=== PATIENT | male | born 1955 | race Caucasian/White ===

== ENCOUNTER 2023-09-09 12:57 | Inpatient (IN) | payer OTHER, SELFPAY ==
--- NOTE | 2023-09-09 14:05 | CM ---
Patient with Hx dementia admitted on 08/29/23 with Dx Septic shock, Influenza A, Aspiration pneumonia, UTI, Acute hypoxic respiratory failure, MALLORY/ATN, Hypernatremia, Acute metabolic septic encephalopathy. IV MS prn, IV Ativan prn.
Message from [facility]; she met with the /family today who agreed to [facility].
Plan [facility].
--- NOTE | 2023-09-09 14:10 | CM ---
Patient from [facility] with Hx dementia admitted on 08/29/23 with Dx Septic shock, Influenza A, Aspiration pneumonia, UTI, Acute hypoxic respiratory failure, MALLORY/ATN, Hypernatremia, Acute metabolic septic encephalopathy. IV MS prn, IV Ativan
prn.
Message from [facility]; she met with the /family today who agreed to [facility].
Plan [facility].
--- NOTE | 2023-09-09 18:10 | PTCARENOTE ---
Pt remains comfortable
--- NOTE | 2023-09-09 20:08 | PTCARENOTE ---
Report given to 2N RN. Pt transported via bed with all his belongings. at bedside.
[2023-09-09 20:11] VITALS: BP 87/52
--- NOTE | 2023-09-09 20:30 | PTCARENOTE ---
Patient received from IMU; Inpatient Hospice; at bedside; patient appears comfortable; emotional support provided; see nursing documentation for further assessment.
[2023-09-09] MEDS: MORPHINE SULFATE 2 MG IV (21:35)
[2023-09-09] MEDS: HALDOL 1 MG IV (21:36)
[2023-09-10] MEDS: HALDOL 1 MG IV (06:34)
[2023-09-10 07:50] VITALS: BP 91/56
--- NOTE | 2023-09-10 07:52 | W.PN.HOSP.TC ---
Today's Communication/Plan
-
see bold
Assessment / Plan
Assessment / Plan
Gen: NAD, appears chronically ill, NCAT
Neck: supple.
CV: RRR, +S1/S2, no m/r/g.
Resp: CTAB anteriorly, no rales, wheezes, or rhonchi.
Psych: calm
Continue inpatient hospice care with Ativan/Haldol/morphine.
Pt's updated at bedside. She was concerned that 'blood pressure had been a problem' and wanted to make sure his 'heart is ok.' I did explain that at this time his heart is regular rate and rhythm and heart sounds are normal but that this (and
the BP) will deteriorate as the dying process progresses.

Documentation from prior to transition to hospice:
Impression:
Septic shock
Influenza A
Aspiration pneumonia, POA
UTI, E. coli pansensitive-POA
Acute hypoxic respiratory failure
Acute kidney injury, acute tubular necrosis
Severe Hypernatremia
Elevated troponin, non myocardial infarction likely related to sepsis.
Acute metabolic septic encephalopathy
Conditions prior to presentation:
Hyperlipidemia
Paroxysmal atrial fibrillation
Dementia, Alzheimer's type (advanced)
Psoriasis
Appendiceal cancer
PLAN:
Septic shock due to influenza A, aspiration pneumonia, and E. coli UTI, all present on admission:
-Also MALLORY and severe hyponatremia due to septic shock and volume depletion/dehydration
-Also acute metabolic encephalopathy due to septic shock
Cont pressor low dose and titrate as able.
Given normal saline bolus and with increased midodrine dose we have been able to keep low-dose Levophed.
Was on Zosyn, started 08/29/23, then transitioned to Unasyn. Can stop abx at this time.
Cont enteral feeds for now and then comfort feeds.
Finished course of Tamiflu.
Follow-up cultures--> influenza A positive, blood cultures no growth, urine culture E. coli, MRSA screen Staph aureus positive.
Off� IVF
Na 173 upon admission-->140 today
Leukocytosis improved
Was on insulin drip, now off
Was on stress dose steroids, now off
Follow-up electrolytes and renal function
Appreciated glaciologist follow up and they signed off 09/04.
Laboratory Supervisor signed off on 09/02
Anticipated Discharge: Within 24 hours
Subjective/Interval History
-
Date of Service: September 10, 2023
Pt resting comfortably.
Objective Data
-
Vital Signs:
Vital Signs
Temp Pulse Resp BP Pulse Ox
98.4 F 80 16 87/52 90
09/09/23 20:11 09/09/23 20:11 09/09/23 20:11 09/09/23 20:11 09/09/23 21:00
I&O
09/09/23 09/10/23 09/11/23
06:59 06:59 06:59
Output Total 2600 / 2600
Balance -2600 / -2600
--- NOTE | 2023-09-10 10:27 | CM ---
Reviewed the chart notes. Patient remains in [facility] status. CM continues to be available to patient/family and is monitoring medical plan for needs at discharge.
Plan [facility].
--- NOTE | 2023-09-10 14:41 | HOSPNOTE ---
Braille Coder visited patient in his room with his spouse, Isa present. Patient was quiet and occasionally opened his eyes. No verbal response. Braille Coder provided support for spouse and prayer. Spouse was tearful. Spouse reported that patient grew up
Protestant but has not been active. Braille Coder will visit 2x per week.
--- NOTE | 2023-09-10 14:43 | HOSPNOTE ---
Patient is resting comfortable, spouse had many questions stating she feels she made a mistake about hospice. I discussed hospice and the philosophy again and explained the patient's current status. The patient is dying and the patient will wax and
wane. Spouse asked about patient eating and drinking and at this time the patient is too lethargic and it is unsafe, however we can do mouth care. The patient does get very agitated with turning and positioning and encouraged the nurse to medicate
prior to care. The patient will be seen daily by hospice nurse. Much education and emotional support needed.
[2023-09-10 19:19] VITALS: BP 90/46
[2023-09-11] MEDS: MORPHINE SULFATE 2 MG IV ×3 (01:08→21:49)
[2023-09-11 07:35] VITALS: BP 117/53
[2023-09-11] MEDS: ATIVAN 0.5 MG IV (09:42)
--- NOTE | 2023-09-11 10:55 | PTCARENOTE ---
pt given prn pain medication and ativan at bedside for the patients restlessness and nonverbal score of 6 for end of life pain. verbal was taken for indwelling maza catheter this morning. interventions added to chart. pt favors the left side and
seems to be having some neck contraction to that side. this nurse and the hospice nurse repositioned the patient and placed a rolled towel as well as pillows under the left side to help prevent any further discomfort. b/l heel foams and elbow foams
are intact and patient is being turned q2hr. states that she does not like ativan and would rather him receive haldol if anything is needed for agitation or anxiety in the future.
--- NOTE | 2023-09-11 11:11 | W.PN.HOSP.TC ---
Today's Communication/Plan
-
see bold
Assessment / Plan
Assessment / Plan
Gen: remains NAD, appears chronically ill, NCAT
Neck: supple.
CV: remains RRR, +S1/S2, no m/r/g.
Resp: remains CTAB anteriorly, no rales, wheezes, or rhonchi.
Psych: calm
Continue inpatient hospice care with Ativan/Haldol/morphine.
Pt's updated at bedside.

Documentation from prior to transition to hospice:
Impression:
Septic shock
Influenza A
Aspiration pneumonia, POA
UTI, E. coli pansensitive-POA
Acute hypoxic respiratory failure
Acute kidney injury, acute tubular necrosis
Severe Hypernatremia
Elevated troponin, non myocardial infarction likely related to sepsis.
Acute metabolic septic encephalopathy
Conditions prior to presentation:
Hyperlipidemia
Paroxysmal atrial fibrillation
Dementia, Alzheimer's type (advanced)
Psoriasis
Appendiceal cancer
PLAN:
Septic shock due to influenza A, aspiration pneumonia, and E. coli UTI, all present on admission:
-Also MALLORY and severe hyponatremia due to septic shock and volume depletion/dehydration
-Also acute metabolic encephalopathy due to septic shock
Cont pressor low dose and titrate as able.
Given normal saline bolus and with increased midodrine dose we have been able to keep low-dose Levophed.
Was on Zosyn, started 08/29/23, then transitioned to Unasyn. Can stop abx at this time.
Cont enteral feeds for now and then comfort feeds.
Finished course of Tamiflu.
Follow-up cultures--> influenza A positive, blood cultures no growth, urine culture E. coli, MRSA screen Staph aureus positive.
Off� IVF
Na 173 upon admission-->140 today
Leukocytosis improved
Was on insulin drip, now off
Was on stress dose steroids, now off
Follow-up electrolytes and renal function
Appreciated track layer head follow up and they signed off 09/04.
Surgical Asst signed off on 09/02
Anticipated Discharge: Within 24 hours
Subjective/Interval History
-
Date of Service: September 11, 2023
Pt currently unresponsive.
Objective Data
-
Vital Signs:
Vital Signs
Temp Pulse Resp BP Pulse Ox
97.8 F 66 16 117/53 94
09/11/23 07:35 09/11/23 07:35 09/11/23 07:35 09/11/23 07:35 09/11/23 10:44
I&O
09/10/23 09/11/23 09/12/23
06:59 06:59 06:59
Intake Total 0 / 0
Output Total 2600 / 2600 1600 / 1600
Balance -2600 / -2600 -1600 / -1600
--- NOTE | 2023-09-11 12:17 | HOSPNOTE ---
Patient observed placing his legs over the side rail. He was restless and showed a flacc score of 5/6, moderate pain. Patient medicated with morphine 2 mg and ativan 0.5 mg IVP. Spouse became upset and stated that she does not like patient to be
given Ativan as it is too sedating. She requests that if patient needs anything for restlessness or agitation that he be given prn Haldol instead. Note placed in chart. Patient turned and repositioned. He was able to fall asleep at the end of the
visit. His neck is contracted to the left side, he has noticeable discomfort when repositioning. Mouth care provided, he did suck on the sponge and swallowed some water. Reviewed comfort feeding available when pt is more awake and alert to safely
tolerate. Spouse was going to go home and shower. Informal report with AP Robledo. Patient continues to be GIP appropriate level of care for the management of pain and anxiety with IVP PRN morphine, Ativan and Haldol that could not be managed in the
outpatient setting. Patient will continue to be seen daily. Emotional support provided.
--- NOTE | 2023-09-11 16:06 | PTCARENOTE ---
nurse talked to MD and hospice nurse. pt asking for comfort liquids. hospice nurse okay with request as long as it is only when pt is more oriented, MD made aware, awaiting order placement.
[2023-09-11 19:57] VITALS: BP 104/55
[2023-09-12 07:56] VITALS: BP 110/56
--- NOTE | 2023-09-12 09:34 | W.PN.HOSP.TC ---
Today's Communication/Plan
-
see A/P
Assessment / Plan
Assessment / Plan
Impression:
Septic shock
Influenza A
Aspiration pneumonia, POA
UTI, E. coli pansensitive-POA
Acute hypoxic respiratory failure
Acute kidney injury, acute tubular necrosis
Severe Hypernatremia
Elevated troponin, non myocardial infarction likely related to sepsis.
Acute metabolic septic encephalopathy
Conditions prior to presentation:
Hyperlipidemia
Paroxysmal atrial fibrillation
Dementia, Alzheimer's type (advanced)
Psoriasis
Appendiceal cancer
A/P:
Septic shock due to influenza A, aspiration pneumonia, and E. coli UTI, all present on admission
Also MALLORY and severe hyponatremia due to septic shock and volume depletion/dehydration
Also acute metabolic encephalopathy due to septic shock
Off pressor/IVF support/midodrine with current comfort measures/hospice care
Zosyn started 08/29/23 then transitioned to Unasyn. Off abx at this time.
Finished course of Tamiflu.
Na 173 upon admission -> 140
Was on insulin drip, now off
Was on stress dose steroids, now off
Appreciated patient placement coordinator follow up and they signed off 09/04.
Tv Technician signed off on 09/02
Continue inpatient hospice care with IV morphine and Haldol.
would like to hold Ativan- held.
d/w , she would like to start feeding. Given eating is considered a pleasurable activity, will liberalize diet and NOT withhold this pleasurable activity.
Informed about his high risk of aspiration and as a result, she is aware and accepts risk.
d/w RN
Anticipated Discharge: Within 24 hours
Subjective/Interval History
-
Date of Service: September 12, 2023
Objective Data
-
Vital Signs:
Vital Signs
Temp Pulse Resp BP Pulse Ox
36.6 C 63 16 110/56 96
09/12/23 07:56 09/12/23 07:56 09/12/23 07:56 09/12/23 07:56 09/12/23 07:56
I&O
09/11/23 09/12/23 09/13/23
06:59 06:59 06:59
Intake Total 0 / 0
Output Total 1600 / 1600 700 / 700
Balance -1600 / -1600 -700 / -700
Review of Systems
-
Unable to obtain full review of systems at this time due to: Acuity and Other (confusion/delirious)
Physical Exam
-
General: Comfortable and Appears Chronically Ill
Respiratory: Non Labored Respirations; Negative Accessory Resp Muscle Use
Neuro: Awake; Negative AO x 3
Psych: Calm and Confused
--- NOTE | 2023-09-12 10:34 | CM ---
Reviewed the chart notes. Patient continues on [facility]. CM continues to be available to patient/family and is monitoring medical plan for needs at discharge.
Plan: [facility].
[2023-09-12] MEDS: MORPHINE SULFATE 2 MG IV ×3 (12:03→21:30)
--- NOTE | 2023-09-12 12:26 | HOSPNOTE ---
Spoke at length with spouse and son and explained why we give medications and the use of Haldol and the use of Ativan. The family feels the patient becomes too lethargic with Ativan so it was discontinued. I also explained we only medicate when
needed. Emotional support was given. If the patient stabilizes I explained placement would be needed and room and board is not covered on hospice care. The SNF choice would be [facility] and the spouse had already filled out documents. We will
continue to assess daily. The spouse also wanted thick liquids ordered and attending placed order for comfort. I instructed spouse and son not to give any liquids if the patient is too lethargic return understanding. Spoke with floor RN and gave
report.
--- NOTE | 2023-09-12 13:18 | HOSPNOTE ---
Puppy Trainer visited patient with spouse and son present. Spouse denied spiritual concerns or distress. Puppy Trainer provided comfort doing active listening and dialogue. Puppy Trainer will visit 2x/week. Patient was sleeping comfortably.
[2023-09-12 19:38] VITALS: BP 109/68
[2023-09-12] MEDS: HALDOL 1 MG IV (20:18)
[2023-09-13] MEDS: HALDOL 1 MG IV (04:43)
[2023-09-13] MEDS: MORPHINE SULFATE 2 MG IV (04:43)
[2023-09-13 07:20] VITALS: BP 102/51
--- NOTE | 2023-09-13 10:28 | W.PN.HOSP.TC ---
Today's Communication/Plan
-
see A/ P
Assessment / Plan
Assessment / Plan
Impression:
Septic shock
Influenza A
Aspiration pneumonia, POA
UTI, E. coli pansensitive-POA
Acute hypoxic respiratory failure
Acute kidney injury, acute tubular necrosis
Severe Hypernatremia
Elevated troponin, non myocardial infarction likely related to sepsis.
Acute metabolic septic encephalopathy
Conditions prior to presentation:
Hyperlipidemia
Paroxysmal atrial fibrillation
Dementia, Alzheimer's type (advanced)
Psoriasis
Appendiceal cancer
A/P:
Septic shock due to influenza A, aspiration pneumonia, and E. coli UTI, all present on admission
Also MALLORY and severe hyponatremia due to septic shock and volume depletion/dehydration
Also acute metabolic encephalopathy due to septic shock
Off pressor/IVF support/midodrine with current comfort measures/hospice care
Zosyn started 08/29/23 then transitioned to Unasyn. Off abx at this time.
Finished course of Tamiflu.
Na 173 upon admission -> 140
Was on insulin drip, now off
Was on stress dose steroids, now off
Appreciated orthopedic rn follow up and they signed off 09/04.
Safe Deposit Clerk signed off on 09/02
Continue inpatient hospice care with IV morphine and Haldol.
would like to hold Ativan- held.
d/w , she would like to start feeding. Given eating is considered a pleasurable activity, will liberalize diet and NOT withhold this pleasurable activity.
Informed about his high risk of aspiration and as a result, she is aware and accepts risk.
updated on the phone
Anticipated Discharge: Within 24 hours
Subjective/Interval History
-
Date of Service: September 13, 2023
Objective Data
-
Vital Signs:
Vital Signs
Temp Pulse Resp BP Pulse Ox
36.1 C 56 16 102/51 93
09/13/23 07:20 09/13/23 07:20 09/13/23 07:20 09/13/23 07:20 09/13/23 07:20
I&O
09/12/23 09/13/23 09/14/23
06:59 06:59 06:59
Output Total 700 / 700 850 / 850
Balance -700 / -700 -850 / -850
Review of Systems
-
Unable to obtain full review of systems at this time due to: Acuity
Physical Exam
-
General: Comfortable and Appears Chronically Ill
Respiratory: Non Labored Respirations; Negative Accessory Resp Muscle Use
Neuro: Negative AO x 3
Psych: Calm and Confused
--- NOTE | 2023-09-13 14:05 | HOSPNOTE ---
Spoke to spouse again about eating and drinking. I educated that patient is not awake enough to eat or drink, however if there are periods where he is awake then the spouse could feed pudding and thickened liquids, spouse stated understanding. The
patient does require medications prior to any care for pain and agitation. Report given to floor RN. Patient will be see daily by hospice nurse.
--- NOTE | 2023-09-13 15:15 | CM ---
Reviewed chart
Patient continues on [facility].
CM continues to be available to patient/family and is monitoring medical plan for needs at discharge.
Plan: [facility].
--- NOTE | 2023-09-13 15:53 | HOSPNOTE ---
bench worker apprentice visited with patient to provide supportive services as well as to complete initial KNITTER MECHANIC assessment. Patient is a 68 year old who was recently admitted onto hospice services with primary diagnosis Alzheimer's Disease. Patient is
currently GIP level of care. Spouse/SHERRYRadha Moss was present at bedside. Patient was lethargic during visit. Documentation from hospice nurse Day states that patient requires medication prior to any care for pain and agitation. Patient and spouse
have been for 35 years and has a son Frank. Spouse stated that patient is not a and is [employer] but is not active. aids social worker will visit at a frequency of twice a week while patient is GIP level of care. Spouse is having a hard
time accepting patient's decline and voiced feeling angry and questioning purpose of hospice. aids social worker provided emotional support throughout visit and answered questions asked by spouse. Spouse stated that there are no end of life arrangements
made at this time and expressed that they have never discussed his wishes. aids social worker updated hospice SN Day about spouse having multiple questions about medications. aids social worker was informed that she went over the medications and hospice
philosophy multiple times with spouse and that hospice SN [facility] is planned to visit patient tomorrow. aids social worker will inform spouse of this.
[2023-09-13 23:33] VITALS: BP 108/53
[2023-09-14] MEDS: MORPHINE SULFATE 2 MG IV ×2 (02:34→20:28)
[2023-09-14 07:55] VITALS: BP 100/52
--- NOTE | 2023-09-14 09:29 | W.PN.HOSP.TC ---
Today's Communication/Plan
-
cont comfort measures
Assessment / Plan
Assessment / Plan
Impression:
Septic shock
Influenza A
Aspiration pneumonia, POA
UTI, E. coli pansensitive-POA
Acute hypoxic respiratory failure
Acute kidney injury, acute tubular necrosis
Severe Hypernatremia
Elevated troponin, non myocardial infarction likely related to sepsis.
Acute metabolic septic encephalopathy
Conditions prior to presentation:
Hyperlipidemia
Paroxysmal atrial fibrillation
Dementia, Alzheimer's type (advanced)
Psoriasis
Appendiceal cancer
A/P:
Septic shock due to influenza A, aspiration pneumonia, and E. coli UTI, all present on admission
Also MALLORY and severe hyponatremia due to septic shock and volume depletion/dehydration
Also acute metabolic encephalopathy due to septic shock
Off pressor/IVF support/midodrine with current comfort measures/hospice care
Zosyn started 08/29/23 then transitioned to Unasyn. Off abx at this time.
Finished course of Tamiflu.
Na 173 upon admission -> 140
Was on insulin drip, now off
Was on stress dose steroids, now off
Appreciated cloth trimmer hand follow up and they signed off 09/04.
Voucher Examiner signed off on 09/02
Continue inpatient hospice care with IV morphine and Haldol.
would like to hold Ativan- held.
would like to start feeding. Given eating is considered a pleasurable activity, will liberalize diet and NOT withhold this pleasurable activity.
Informed about his high risk of aspiration and as a result, she is aware and accepts risk.
Anticipated Discharge: Within 24 hours
Subjective/Interval History
-
Date of Service: September 14, 2023
Objective Data
-
Vital Signs:
Vital Signs
Temp Pulse Resp BP Pulse Ox
36.6 C 55 14 100/52 97
01/27/24 07:55 09/14/23 07:55 09/14/23 07:55 09/14/23 07:55 09/14/23 07:55
I&O
09/13/23 09/14/23 09/15/23
06:59 06:59 06:59
Output Total 850 / 850 400 / 400
Balance -850 / -850 -400 / -400
Review of Systems
-
Unable to obtain full review of systems at this time due to: Acuity
Physical Exam
-
General: Comfortable and Appears Chronically Ill
Respiratory: Non Labored Respirations; Negative Accessory Resp Muscle Use
Neuro: Negative AO x 3
Psych: Calm and Confused
--- NOTE | 2023-09-14 10:57 | HOSPNOTE ---
Visited patient with spouse at the bedside. Patient is lethargic, opened his eyes during the assessment . Last dose of morphine given around 8 hrs prior to assessment. No signs of pain, anxiety or dyspnea observed during the visit. Mouth care
provided. Patient did not have any oral intake. Spouse is emotional and tearful emotional support provided. Limited life expectancy, s/s of dying and comfort care discussed. home arrangements encouraged. Discussed possible nursing facility
placement if patient no longer GIP appropriate. At this time patient remains GIP appropriate for symptoms management. Report with facility RN Radha, symptoms managed.
--- NOTE | 2023-09-14 16:24 | VATNOTE ---
Pt's PICC line assessed at this time. Dressing and biopatch are clean, dry, and intact. Dressing change deferred at this time for patient comfort.
[2023-09-14 19:52] VITALS: BP 117/65
[2023-09-15 07:40] VITALS: BP 89/48
--- NOTE | 2023-09-15 08:43 | VATNOTE ---
Pt's PICC line assessed at this time. Dressing and biopatch are clean, dry, and intact. Dressing change deferred at this time for patient comfort.
--- NOTE | 2023-09-15 11:44 | HOSPNOTE ---
Assessed patient in the bed, minimally responsive. opens eyes and mumbles, restless. flacc moderate. 1 prn dose of morphine in the last 24 hours. at bedside. she reported PATIENT was restless all night pulling at blankets and picking at things,
but felt he was not having pain. Rigid and tense with care or repositioning. lengthy discussion on nonverbal cues of pain. apprehensive to give morphine as she does not want him 'snowed.' Encouraged to medicate before care to make it more
comfortable for him. much emotional support and discussion on end of life changes. agreeable to give Morphine but onlyhalf dose. TT Dr. Cabral and requested Morphine 1mg PRN. Patient remains GIP appropriate. Discharge planning to continue.
--- NOTE | 2023-09-15 12:11 | W.PN.HOSP.TC ---
Today's Communication/Plan
-
see A/P
Assessment / Plan
Assessment / Plan
Impression:
Septic shock
Influenza A
Aspiration pneumonia, POA
UTI, E. coli pansensitive-POA
Acute hypoxic respiratory failure
Acute kidney injury, acute tubular necrosis
Severe Hypernatremia
Elevated troponin, non myocardial infarction likely related to sepsis.
Acute metabolic septic encephalopathy
Conditions prior to presentation:
Hyperlipidemia
Paroxysmal atrial fibrillation
Dementia, Alzheimer's type (advanced)
Psoriasis
Appendiceal cancer
A/P:
Septic shock due to influenza A, aspiration pneumonia, and E. coli UTI, all present on admission
Also MALLORY and severe hyponatremia due to septic shock and volume depletion/dehydration
Also acute metabolic encephalopathy due to septic shock
Off pressor/IVF support/midodrine with current comfort measures/hospice care
Zosyn started 08/29/23 then transitioned to Unasyn. Off abx at this time.
Finished course of Tamiflu.
Na 173 upon admission -> 140
Was on insulin drip, now off
Was on stress dose steroids, now off
Appreciated associate sales manager follow up and they signed off 09/04.
Dimpling Machine Operator signed off on 09/02
Continue inpatient hospice care with IV morphine and Haldol.
would like to hold Ativan- held.
would like to start feeding. Given eating is considered a pleasurable activity, will liberalize diet and NOT withhold this pleasurable activity.
Informed about his high risk of aspiration and as a result, she is aware and accepts risk.
DW RN
DW at bedside
Anticipated Discharge: Within 24 hours
Subjective/Interval History
-
Date of Service: September 15, 2023
Objective Data
-
Vital Signs:
Vital Signs
Temp Pulse Resp BP Pulse Ox
36.5 C 59 12 89/48 97
09/15/23 07:40 09/15/23 07:40 09/15/23 07:40 09/15/23 07:40 09/15/23 07:40
I&O
09/14/23 09/15/23 09/16/23
06:59 06:59 06:59
Intake Total 540 / 540
Output Total 400 / 400 650 / 650
Balance -400 / -400 -110 / -110
Review of Systems
-
Unable to obtain full review of systems at this time due to: Acuity
Physical Exam
-
General: Comfortable and Appears Chronically Ill
Respiratory: Non Labored Respirations; Negative Accessory Resp Muscle Use
Neuro: Awake
Psych: Calm and Confused
[2023-09-15] MEDS: MORPHINE SULFATE 1 MG IV (14:02)
--- NOTE | 2023-09-15 15:26 | CHAP ---
Mr. Love was mostly sleeping, and I spoke with his , Isa, at bedside. She said they have good support from family and friends, and she also shared about their life together, their matias journeys, and the present situation. Refugio woke up at
one point and asked me how I was doing. I responded, and asked him the same question. Isa noted that Refugio has been able to communicate a little during the past week, which he hasn't done for some years. We prayed together, and I made the sign of
the Cross on Refugio's forehead, with the blessed oil Isa had with her.
[2023-09-15] MEDS: MORPHINE SULFATE 2 MG IV (18:13)
[2023-09-15] MEDS: FLUSH (NSS) 2 FLUSH IV (18:14)
[2023-09-15 19:52] VITALS: BP 100/49
[2023-09-16] MEDS: MORPHINE SULFATE 2 MG IV ×4 (00:39→23:41)
--- NOTE | 2023-09-16 00:50 | PTCARENOTE ---
Patient's requested morpine 2mg IV to be given (see MAR); she stated that the 1mg was not effective.
[2023-09-16 07:25] VITALS: BP 112/58
--- NOTE | 2023-09-16 08:04 | W.PN.HOSP.TC ---
Today's Communication/Plan
-
Continue comfort care measures.
Assessment / Plan
Assessment / Plan
Physical exam:
General: Acutely ill
HEENT: Normocephalic, Atraumatic and Moist Mucous Membranes
Respiratory: Decreased breath sounds bilateral; No crackles.� Negative Wheezes
Cardiac: Regular Rhythm and S1/S2
GI: Soft, Nontender and Nondistended
Musculoskeletal: No Clubbing, No Cyanosis and No Edema
Neuro: Alert and Disoriented, does move spontaneously and currently on restraints.
Psych: Lack of judgment and insight at the moment.
A/P:
Impression:
Septic shock
Influenza A
Aspiration pneumonia, POA
UTI, E. coli pansensitive-POA
Acute hypoxic respiratory failure
Acute kidney injury, acute tubular necrosis
Severe Hypernatremia
Elevated troponin, non myocardial infarction likely related to sepsis.
Acute metabolic septic encephalopathy
Conditions prior to presentation:
Hyperlipidemia
Paroxysmal atrial fibrillation
Dementia, Alzheimer's type (advanced)
Psoriasis
Appendiceal cancer
A/P:
Septic shock due to influenza A, aspiration pneumonia, and E. coli UTI, all present on admission
Also MALLORY and severe hyponatremia due to septic shock and volume depletion/dehydration
Also acute metabolic encephalopathy due to septic shock
Off pressor/IVF support/midodrine with current comfort measures/hospice care
Zosyn started 08/29/23 then transitioned to Unasyn. Off abx at this time.
Finished course of Tamiflu.
Na 173 upon admission -> 140
Was on insulin drip, now off
Was on stress dose steroids, now off
Appreciated email specialist follow up and they signed off 09/04.
Dam Tender Assistant signed off on 09/02
Continue inpatient hospice care with IV morphine and Haldol.
would like to hold Ativan- held by Dr. Cabral.
would like to start feeding. Given eating is considered a pleasurable activity, will liberalize diet and NOT withhold this pleasurable activity.
Dr. Cabral informed about his high risk of aspiration and as a result, she is aware and accepts risk.
NIKOLAY RN today on 09/16.
Anticipated Discharge: > 48 hours
Subjective/Interval History
-
Date of Service: September 16, 2023
Patient seen and examined. No new events.
Objective Data
-
Vital Signs:
Vital Signs
Temp Pulse Resp BP Pulse Ox
97.4 F 53 16 100/49 96
09/15/23 19:52 09/15/23 19:52 09/15/23 19:52 09/15/23 19:52 09/16/23 00:00
I&O
09/15/23 09/16/23 09/17/23
06:59 06:59 06:59
Intake Total 540 / 540
Output Total 650 / 650 475 / 475
Balance -110 / -110 -475 / -475
--- NOTE | 2023-09-16 11:43 | CM ---
Reviewed the chart notes. Patient remains on [facility].
--- NOTE | 2023-09-16 11:48 | HOSPNOTE ---
Wholesale Manager Visited Patient in Room at [facility]. Patient was sleeping, having recently recieved medication for comfort. Wholesale Manager spoke with patient's spouse and offered support and reminded her of the resources available to her and the
patient while on hospice. Wholesale Manager will visit daily.
--- NOTE | 2023-09-16 14:19 | HOSPNOTE ---
Spoke with spouse and discussed how the patient looked uncomfortable and she was in agreement to give morphine. Apparently over the weekend the spouse was asking the staff do a half dose however stated it was not working well. Much education given
and support. Patient will be seen daily by hospice nurse.
[2023-09-16 23:51] VITALS: BP 118/58
[2023-09-17] MEDS: MORPHINE SULFATE 2 MG IV ×5 (03:20→19:59)
[2023-09-17 07:25] VITALS: BP 134/58
--- NOTE | 2023-09-17 08:25 | W.PN.HOSP.TC ---
Today's Communication/Plan
-
Continue comfort measures
Assessment / Plan
Assessment / Plan
Physical exam:
General: Acutely ill
HEENT: Normocephalic, Atraumatic and Moist Mucous Membranes
Respiratory: Decreased breath sounds bilateral; No crackles.� Negative Wheezes
Cardiac: Regular Rhythm and S1/S2
GI: Soft, Nontender and Nondistended
Musculoskeletal: No Clubbing, No Cyanosis and No Edema
Neuro: Alert and Disoriented, does move spontaneously and currently on restraints.
Psych: Lack of judgment and insight at the moment.
A/P:
Impression:
Septic shock
Influenza A
Aspiration pneumonia, POA
UTI, E. coli pansensitive-POA
Acute hypoxic respiratory failure
Acute kidney injury, acute tubular necrosis
Severe Hypernatremia
Elevated troponin, non myocardial infarction likely related to sepsis.
Acute metabolic septic encephalopathy
Conditions prior to presentation:
Hyperlipidemia
Paroxysmal atrial fibrillation
Dementia, Alzheimer's type (advanced)
Psoriasis
Appendiceal cancer
A/P:
Septic shock due to influenza A, aspiration pneumonia, and E. coli UTI, all present on admission
Also MALLORY and severe hyponatremia due to septic shock and volume depletion/dehydration
Also acute metabolic encephalopathy due to septic shock
Off pressor/IVF support/midodrine with current comfort measures/hospice care
Zosyn started 08/29/23 then transitioned to Unasyn. Off abx at this time.
Finished course of Tamiflu.
Na 173 upon admission -> 140
Was on insulin drip, now off
Was on stress dose steroids, now off
Appreciated registered vascular technologist (rvt) follow up and they signed off 09/04.
Refrigeration Systems Installer signed off on 09/02
Continue inpatient hospice care with IV morphine and Haldol.
would like to hold Ativan- held by Dr. Cabral.
would like to start feeding. Given eating is considered a pleasurable activity, will liberalize diet and NOT withhold this pleasurable activity.
Dr. Cabral informed about his high risk of aspiration and as a result, she is aware and accepts risk.
NIKOLAY RN.
Anticipated Discharge: 24 - 48 hours
Subjective/Interval History
-
Date of Service: September 17, 2023
Patient seen and examined.
Objective Data
-
Vital Signs:
Vital Signs
Temp Pulse Resp BP Pulse Ox
97.6 F 74 18 134/58 94
09/17/23 07:25 09/17/23 07:25 09/17/23 07:25 09/17/23 07:25 09/17/23 07:25
I&O
09/16/23 09/17/23 09/18/23
06:59 06:59 06:59
Output Total 475 / 475 450 / 450
Balance -475 / -475 -450 / -450
--- NOTE | 2023-09-17 13:01 | HOSPNOTE ---
Patient is lethargic and was just medicated with morphine IV for pain. Patient is agitated however the spouse is refusing to administer Haldol at this time and states the morphine works. The spouse stated she picked a home [place] [facility]. Patient will be seen daily by chain sales consultant.
--- NOTE | 2023-09-17 14:56 | CM ---
Reviewed the chart notes. Patient remains on [facility]. CM continues to be available to patient/family and is monitoring medical plan for needs at discharge.
Plan: [facility].
[2023-09-17 23:49] VITALS: BP 151/73
[2023-09-18] MEDS: MORPHINE SULFATE 2 MG IV ×10 (01:10→23:46)
--- NOTE | 2023-09-18 07:32 | W.PN.HOSP.TC ---
Today's Communication/Plan
-
Comfort measures
Assessment / Plan
Assessment / Plan
Physical exam:
General: Acutely ill
HEENT: Normocephalic, Atraumatic and Moist Mucous Membranes
Respiratory: Decreased breath sounds bilateral; No crackles.� Negative Wheezes
Cardiac: Regular Rhythm and S1/S2
GI: Soft, Nontender and Nondistended
Musculoskeletal: No Clubbing, No Cyanosis and No Edema
Neuro: Alert and Disoriented, does move spontaneously and currently on restraints.
Psych: Lack of judgment and insight at the moment.
A/P:
Impression:
Septic shock
Influenza A
Aspiration pneumonia, POA
UTI, E. coli pansensitive-POA
Acute hypoxic respiratory failure
Acute kidney injury, acute tubular necrosis
Severe Hypernatremia
Elevated troponin, non myocardial infarction likely related to sepsis.
Acute metabolic septic encephalopathy
Conditions prior to presentation:
Hyperlipidemia
Paroxysmal atrial fibrillation
Dementia, Alzheimer's type (advanced)
Psoriasis
Appendiceal cancer
A/P:
Septic shock due to influenza A, aspiration pneumonia, and E. coli UTI, all present on admission
Also MALLORY and severe hyponatremia due to septic shock and volume depletion/dehydration
Also acute metabolic encephalopathy due to septic shock
Off pressor/IVF support/midodrine with current comfort measures/hospice care
Zosyn started 08/29/23 then transitioned to Unasyn. Off abx at this time.
Finished course of Tamiflu.
Na 173 upon admission -> 140
Was on insulin drip, now off
Was on stress dose steroids, now off
Appreciated pens and pencils repairer follow up and they signed off 09/04.
Terminal Make Up Operator signed off on 09/02
Continue inpatient hospice care with IV morphine and Haldol.
would like to hold Ativan- held by Dr. Cabral.
Currently on morphine 2 mg every 1 hours as needed (no need for drip at the moment but will reeval), Haldol 1 mg IV every 4 hours as needed, Zofran 4 mg every 6 hours as needed, Robinul as needed, Dulcolax as needed, rectal acetaminophen as needed.
would like to start feeding. Given eating is considered a pleasurable activity, will liberalize diet and NOT withhold this pleasurable activity.
Dr. Cabral informed about his high risk of aspiration and as a result, she is aware and accepts risk.
Discussed with RN.
Discussed with at bedside
Anticipated Discharge: 24 - 48 hours
Subjective/Interval History
-
Date of Service: September 18, 2023
patient seen and examined.
Objective Data
-
Vital Signs:
Vital Signs
Temp Pulse Resp BP Pulse Ox
97.4 F 93 14 151/73 94
09/17/23 23:49 09/17/23 23:49 09/17/23 23:49 09/17/23 23:49 09/17/23 23:49
I&O
09/17/23 09/18/23 09/19/23
06:59 06:59 06:59
Intake Total 0 / 0
Output Total 450 / 450 450 / 450
Balance -450 / -450 -450 / -450
[2023-09-18] MEDS: ROBINUL 0.200000000000000011 MG IV ×2 (08:18→20:50)
[2023-09-18 08:40] VITALS: BP 105/65
[2023-09-18] MEDS: HALDOL 1 MG IV ×2 (11:37→23:46)
--- NOTE | 2023-09-18 11:47 | HOSPNOTE ---
copy worker visited with patient to provide supportive services, including emotional support. Spouse sIa was present at bedside. Patient continues to be lethargic. Hospital nurse came in after visit to administer medication. Spouse stated
that she feels that the morphine is helping with his pain. Patient did not appear to be restless during visit. Spouse stated that their son is also at the hospital to visit and had stepped out. Emotional support provided and social service liaison encouraged
spouse to reach out for support needed. Patient remains GIP appropriate to manage symptoms including pain and agitation. Discharge planning continues.
--- NOTE | 2023-09-18 12:08 | HOSPNOTE ---
No family was present for my visit early this am. The patient is lethargic did not open eyes at all during visit. decreased urine output noted. Patient's coloring has changed since yesterday. Encouraged to continue medicating for pain management.
Patient will be seen daily.
[2023-09-18 23:26] VITALS: BP 106/71
[2023-09-19] MEDS: MORPHINE SULFATE 2 MG IV ×7 (00:54→23:16)
[2023-09-19] MEDS: ROBINUL 0.200000000000000011 MG IV (03:06)
[2023-09-19 07:00] VITALS: BP 94/49
[2023-09-19] MEDS: HALDOL 1 MG IV ×2 (08:21→15:58)
--- NOTE | 2023-09-19 08:30 | W.PN.HOSP.TC ---
Today's Communication/Plan
-
Continue comfort measures
Assessment / Plan
Assessment / Plan
Physical exam:
General: Acutely ill
HEENT: Normocephalic, Atraumatic and Moist Mucous Membranes
Respiratory: Decreased breath sounds bilateral; No crackles.� Negative Wheezes
Cardiac: Regular Rhythm and S1/S2
GI: Soft, Nontender and Nondistended
Musculoskeletal: No Clubbing, No Cyanosis and No Edema
Neuro: Alert and Disoriented, does move spontaneously and currently on restraints.
Psych: Lack of judgment and insight at the moment.
A/P:
Impression:
Septic shock
Influenza A
Aspiration pneumonia, POA
UTI, E. coli pansensitive-POA
Acute hypoxic respiratory failure
Acute kidney injury, acute tubular necrosis
Severe Hypernatremia
Elevated troponin, non myocardial infarction likely related to sepsis.
Acute metabolic septic encephalopathy
Conditions prior to presentation:
Hyperlipidemia
Paroxysmal atrial fibrillation
Dementia, Alzheimer's type (advanced)
Psoriasis
Appendiceal cancer
A/P:
Septic shock due to influenza A, aspiration pneumonia, and E. coli UTI, all present on admission
Also MALLORY and severe hyponatremia due to septic shock and volume depletion/dehydration
Also acute metabolic encephalopathy due to septic shock
Off pressor/IVF support/midodrine with current comfort measures/hospice care
Zosyn started 08/29/23 then transitioned to Unasyn. Off abx at this time.
Finished course of Tamiflu.
Na 173 upon admission -> 140
Was on insulin drip, now off
Was on stress dose steroids, now off
Appreciated commercial illustrator follow up and they signed off 09/04.
Program Instructor signed off on 09/02
Continue inpatient hospice care with IV morphine and Haldol.
would like to hold Ativan- held by Dr. Cabral.
Currently on morphine 2 mg every 1 hours as needed (no need for drip at the moment but will reeval), Haldol 1 mg IV every 4 hours as needed, Zofran 4 mg every 6 hours as needed, Robinul as needed, Dulcolax as needed, rectal acetaminophen as needed.
would like to start feeding. Given eating is considered a pleasurable activity, will liberalize diet and NOT withhold this pleasurable activity.
Dr. Cabral informed about his high risk of aspiration and as a result, she is aware and accepts risk.
Discussed with RN.
Discussed with at bedside
Anticipated Discharge: 24 - 48 hours
Subjective/Interval History
-
Date of Service: September 19, 2023
Patient seen and examined
Objective Data
-
Vital Signs:
Vital Signs
Temp Pulse Resp BP Pulse Ox
99.5 F 108 20 94/49 85
09/19/23 07:00 09/19/23 07:00 09/19/23 07:00 09/19/23 07:00 09/19/23 07:00
I&O
09/18/23 09/19/23 09/20/23
06:59 06:59 06:59
Intake Total 0 / 0
Output Total 450 / 450 300 / 300
Balance -450 / -450 -300 / -300
[2023-09-19] MEDS: TYLENOL/FEVERALL 650 MG RECTAL ×2 (08:38→16:06)
--- NOTE | 2023-09-19 11:30 | CM ---
Reviewed the chart notes. Patient continue on [facility].
--- NOTE | 2023-09-19 11:38 | HOSPNOTE ---
Patient is active and completely unresponsive. Patient has been given 2 PRN doses for resp. Patient now appears comfortable. Will continue to see patient daily.
--- NOTE | 2023-09-19 15:38 | HOSPNOTE ---
farmworker rice visited with patient who is currently GIP level of care to provide supportive services. Patient is unresponsive at this time and appears active. Spouse present at bedside along with son who appear to be coping appropriately at
this time. Patient appeared comfortable and spouse had music playing for patient. Patient remains GIP appropriate for management of pain and respiratory distress. Discharge planning continues.
[2023-09-19 21:02] VITALS: BP 93/64
[2023-09-20] MEDS: MORPHINE SULFATE 2 MG IV ×4 (04:40→10:26)
[2023-09-20] MEDS: HALDOL 1 MG IV (05:21)
[2023-09-20] MEDS: TYLENOL/FEVERALL 650 MG RECTAL ×2 (05:29→09:34)
[2023-09-20 08:18] VITALS: BP 104/77
--- NOTE | 2023-09-20 11:23 | W.PN.DEATH ---
Pronouncement of
-
Called to see patient to pronounce.
No spontaneous heart tones or respirations noted.
Patient not responsive to verbal stimuli.
Patient is pronounced .
Time of : 11:10
Date of : 09/20/23
Cause of : Sepsis.
Family Notified: Yes ( at bedside.)
--- NOTE | 2023-09-20 11:24 | W.DCSUMMARY ---
Discharge Summary
Discharge Data
Date of Admission: 09/09/23
Date of Discharge: 09/20/23
-
Pending Results: No
Hospital Course
Patient is 68 years old male with multiple comorbidities came into the hospital septic shock. He was found to have influenza A, aspiration pneumonia, and urinary tract infection. He was hypoxic and in septic shock and required pressors and
multiple rounds of antibiotics. Patient also with electrolyte abnormalities with severe hyperkalemia. Initially admitted to ICU. Patient turned around from the initial insult, but continued to deteriorate and in light of his multiple medical
problems he was admitted to inpatient hospice care. Patient has been on comfort care measures and today he on 09/20/2023 at 1110 surrounded by his loved one. Let his soul rest in peace.
Discharge Plan
-
Patient Disposition:
Date/Time
Date/Time: 09/20/23 11:10
Discharge Date and Time
Discharge Date/Time: 09/20/23 13:08
--- NOTE | 2023-09-20 11:43 | HOSPNOTE ---
Patient was started on a morphine drip for increased respirations and elevated temp and heart rate. Attending in agreement. I spoke with spouse and explained and she is in agreement. Patient is active and will be seen daily by certification officer.
--- NOTE | 2023-09-20 13:06 | PTCARENOTE ---
patient at 11:10am As per dr. talley. cause: sepsis. [facility] called. family left with belongings. post mortem care provided.
== END 2023-09-20 13:08 | disposition expired | DRG 871 ==
LOC: 2 NORTH 12:57
PROVIDERS: ADMITTING PHYSICIAN Internal Medicine; ATTENDING PHYSICIAN Hospitalist
DX: A41.9 Sepsis, unspecified organism (principal); G93.41 Metabolic encephalopathy; R65.21 Severe sepsis with septic shock; J96.01 Acute respiratory failure with hypoxia; C18.1 Malignant neoplasm of appendix; N17.9 Acute kidney failure, unspecified; Z51.5 Encounter for palliative care; E78.5 Hyperlipidemia, unspecified; I48.0 Paroxysmal atrial fibrillation